=== PATIENT | male | born 1940 | race Caucasian/White ===

== ENCOUNTER 2018-10-04 07:26 | Inpatient (IN) | payer MEDICARE, OTHER | END 2018-10-06 12:00 | disposition home or self-care (01) | LOC: PAS IN 07:26 → ORTHO 4S 14:30 | PROC: 0SRC0J9 Replacement of Right Knee Joint with Synthetic Substitute, Cemented, Open Approach (ICD-10-PCS; principal; 2018-10-04 10:28) | DX: M17.11 Unilateral primary osteoarthritis, right knee (principal); D62 Acute posthemorrhagic anemia ==

== ENCOUNTER 2019-06-20 11:32 | Emergency (ER) | payer MEDICARE, OTHER ==
[~2019-06-20] VITALS: Ht 172.7 cm; Wt 84.1 kg
[~2019-06-20 11:32] MED LIST: AMIO200T61 PO; ASPI-1 PO; ATOR80TA PO; CYAN100019 PO; FELO5TAB4 PO; FOCUS FACTOR; GLUC-99 PO; GLUC100017; HYDR-3972 PO; LACT1CAP65 PO; SILD100T PO; VITA400T8 PO; ZET10T PO
[2019-06-20 12:00] LABS: BASOPHILS # (AUTO) 0.1 X10'3 (0-0.2); BASOPHILS % (AUTO) 1.1 % (0-1); EOSINOPHILS # (AUTO) 0.3 X10'3 (0-0.9); HEMATOCRIT 45.2 % (42.0-52.0); HEMOGLOBIN 14.7 g/dl (14.0-17.9); LYMPHOCYTES # (AUTO) 1.5 X10'3 (1.1-4.8); LYMPHOCYTES % (AUTO) 22.7 % (21-51); MEAN CORPUSCULAR HEMOGLOBIN 28.8 PG (27.0-31.0); MEAN CORPUSCULAR HGB CONC 32.6 g/dL (33.0-36.5); MEAN CORPUSCULAR VOLUME 88.2 FL (78-98); MEAN PLATELET VOLUME 9.8 FL (7.4-10.4); MONOCYTES # (AUTO) 0.7 X10'3 (0-0.9); MONOCYTES % (AUTO) 10.2 % (2-12); PLATELET COUNT 144 X10'3 (140-440); RED BLOOD COUNT 5.12 X10'6 (4.70-6.10); RED CELL DISTRIBUTION WIDTH 16.1 % (11.5-14.5); WHITE BLOOD COUNT 6.4 X10'3 (4.5-11.0)
[2019-06-20 12:14] LABS: PARTIAL THROMBOPLASTIN TIME 26 SECONDS (22-32)
[2019-06-20 12:17] LABS: ALANINE AMINOTRANSFERASE 41 U/L (12-78); ALBUMIN 3.7 G/DL (3.4-5.0); ALBUMIN/GLOBULIN RATIO 1.1 (1.1-1.5); ALKALINE PHOSPHATASE 130 IU/L (46-116); ANION GAP 8 (8-16); ASPARTATE AMINO TRANSFERASE 43 U/L (10-37); BLOOD UREA NITROGEN 24 MG/DL (7-18); BUN/CREATININE RATIO 15.3 (5.4-32.0); CALCIUM 8.8 MG/DL (8.5-10.1); CHLORIDE 108 MMOL/L (99-107); CREATININE 1.57 MG/DL (0.60-1.10); GLUCOSE 200 MG/DL (70-104); POTASSIUM 4.3 MMOL/L (3.5-5.1); SODIUM 145 MMOL/L (135-145); TOTAL CARBON DIOXIDE 28.9 MMOL/L (24-32); TOTAL PROTEIN 7.2 G/DL (6.4-8.2); eGFR 43 ML/MIN
[2019-06-20 12:35] LABS: D-DIMER 0.58 MG/L FEU (0-0.50)
[2019-06-20] MEDS ORDERED: normal saline 1000ML IV soln IVB ONE ×2 (12:35)
[2019-06-20] MEDS ORDERED: iohexol 350MG/ML 100ml bottle IV ONE (13:07)
[2019-06-20] MEDS ORDERED: furosemide 10 MG/1 ML 10ml inj IV ONE (14:45)
[2019-06-20 15:17] VITALS: BP 101/61
== END 2019-06-20 15:21 | disposition home or self-care (01) ==
LOC: ER 11:32
DX: I11.0 Hypertensive heart disease with heart failure (principal); I50.9 Heart failure, unspecified; I25.2 Old myocardial infarction; I25.10 Atherosclerotic heart disease of native coronary artery without angina pectoris; R22.41 Localized swelling, mass and lump, right lower limb; Z86.73 Personal history of transient ischemic attack (TIA), and cerebral infarction without residual deficits; Z90.49 Acquired absence of other specified parts of digestive tract; Z98.890 Other specified postprocedural states; Z79.82 Long term (current) use of aspirin; Z79.899 Other long term (current) drug therapy
CPT/HCPCS: 36415; 71045; 71275; 80053; 83880; 84484; 85025; 85379; 85610; 85730; 93005; 93971; 96374; 99284; J1940; J7030; J7040; Q9967

== ENCOUNTER 2019-09-04 12:43 | Outpatient (CLI) | payer OTHER ==
[~2019-09-04 12:43] MED LIST changes: -FELO5TAB4 PO; +FELO5TAB46 PO
== END 2019-09-04 23:59 | disposition home or self-care (01) ==
LOC: CARD DIAG 12:43
PROVIDERS: ATTEND Orthopaedic Surgery
DX: I08.8 Other rheumatic multiple valve diseases (principal); I25.10 Atherosclerotic heart disease of native coronary artery without angina pectoris
CPT/HCPCS: 93306

== ENCOUNTER 2022-07-10 09:46 | Outpatient (CLI) | payer OTHER ==
[2022-07-10 10:16] LABS: BASOPHILS # (AUTO) 0.1 X10'3 (0-0.2); BASOPHILS % (AUTO) 1.3 % (0-1); EOSINOPHILS # (AUTO) 0.2 X10'3 (0-0.9); HEMATOCRIT 42.4 % (42.0-52.0); HEMOGLOBIN 14.1 g/dl (14.0-17.9); LYMPHOCYTES # (AUTO) 1.2 X10'3 (1.1-4.8); LYMPHOCYTES % (AUTO) 19.2 % (21-51); MEAN CORPUSCULAR HEMOGLOBIN 33.4 PG (27.0-31.0); MEAN CORPUSCULAR HGB CONC 33.4 g/dL (33.0-36.5); MEAN CORPUSCULAR VOLUME 100.1 FL (78-98); MEAN PLATELET VOLUME 9.5 FL (7.4-10.4); MONOCYTES # (AUTO) 0.8 X10'3 (0-0.9); MONOCYTES % (AUTO) 13.5 % (2-12); NEUTROPHILS # (AUTO) 3.9 X10'3 (1.8-7.7); PLATELET COUNT 126 X10'3 (140-440); RED BLOOD COUNT 4.24 X10'6 (4.70-6.10); RED CELL DISTRIBUTION WIDTH 15.3 % (11.5-14.5); WHITE BLOOD COUNT 6.2 X10'3 (4.5-11.0)
[2022-07-10 10:29] LABS: APTT 27 SECONDS (22-32)
[2022-07-10 10:33] LABS: ALANINE AMINOTRANSFERASE 45 U/L (12-78); ALBUMIN 3.4 G/DL (3.4-5.0); ALBUMIN/GLOBULIN RATIO 1.1 (1.1-1.5); ALKALINE PHOSPHATASE 93 IU/L (46-116); ANION GAP 6 (8-16); ASPARTATE AMINO TRANSFERASE 32 U/L (10-37); BILIRUBIN,TOTAL 0.5 MG/DL (0.1-1.0); BLOOD UREA NITROGEN 23 MG/DL (7-18); BUN/CREATININE RATIO 19.3 (5.4-32.0); CALCIUM 9.3 MG/DL (8.5-10.1); CHLORIDE 110 MMOL/L (99-107); CREATININE 1.19 MG/DL (0.60-1.10); GLUCOSE 123 MG/DL (70-104); POTASSIUM 4.5 MMOL/L (3.5-5.1); SODIUM 145 MMOL/L (135-145); TOTAL CARBON DIOXIDE 29.5 MMOL/L (24-32); TOTAL PROTEIN 6.5 G/DL (6.4-8.2); eGFR 59 ML/MIN
[2022-07-10] MEDS ORDERED: IODIXANOL 320 MG/ML INFUS..BTL 100ML IV ONE (11:21)
== END 2022-07-10 23:59 | disposition home or self-care (01) ==
LOC: RAD 09:46
PROVIDERS: ATTEND Internal Medicine Cardiovascular Disease
DX: Z01.818 Encounter for other preprocedural examination (principal); I65.23 Occlusion and stenosis of bilateral carotid arteries; K44.9 Diaphragmatic hernia without obstruction or gangrene; K40.90 Unilateral inguinal hernia, without obstruction or gangrene, not specified as recurrent; I51.7 Cardiomegaly; I70.0 Atherosclerosis of aorta; I72.9 Aneurysm of unspecified site; M47.814 Spondylosis without myelopathy or radiculopathy, thoracic region; I35.0 Nonrheumatic aortic (valve) stenosis; Z87.891 Personal history of nicotine dependence; Z79.899 Other long term (current) drug therapy; Z90.49 Acquired absence of other specified parts of digestive tract
CPT/HCPCS: 36415; 71046; 71275; 74174; 80053; 85025; 85610; 85730; 93880; 94010; 94727; 94729; J3490; Q9967

== ENCOUNTER 2023-08-07 16:55 | Inpatient (IN) | payer OTHER, MEDICARE ==
[~2023-08-07] VITALS: Ht 172.7 cm; Wt 84.1 kg
[~2023-08-07 16:55] MED LIST changes: +AMI200T PO; -AMIO200T61 PO; +APIX5TAB3 PO; -ASPI-1 PO; +ASPI81TA52 PO; +AZIT250T PO; +CARV3.122 PO; +CEPH-585 PO; +CHOL20003 PO; +CLOP75TA34 PO; +EZET10TA7 PO; -FELO5TAB46 PO; -FOCUS FACTOR; +FOCUS FACTOR PO; +FURO-149 PO; +GABA-530 PO; -GLUC-99 PO; -GLUC100017; +GLUC100017 PO; -HYDR-3972 PO; +POTA-207 PO; +SACU1TAB PO; -SILD100T PO; +VITA100T5 PO; -VITA400T8 PO; -ZET10T PO
[2023-08-07 17:57] LABS: BASOPHILS % (AUTO) 0.4 % (0-1); EOSINOPHILS % (AUTO) 0.4 % (0-6); HEMATOCRIT 41.2 % (42.0-52.0); HEMOGLOBIN 13.6 g/dl (14.0-17.9); LYMPHOCYTES # (AUTO) 0.4 X10'3 (1.1-4.8); LYMPHOCYTES % (AUTO) 4.8 % (21-51); MEAN CORPUSCULAR HEMOGLOBIN 31.8 PG (27.0-31.0); MEAN CORPUSCULAR HGB CONC 32.9 g/dL (33.0-36.5); MEAN CORPUSCULAR VOLUME 96.5 FL (78-98); MEAN PLATELET VOLUME 9.9 FL (7.4-10.4); MONOCYTES # (AUTO) 0.8 X10'3 (0-0.9); MONOCYTES % (AUTO) 10.6 % (2-12); NEUTROPHILS # (AUTO) 6.5 X10'3 (1.8-7.7); NEUTROPHILS % (AUTO) 83.8 % (42-75); PLATELET COUNT 106 X10'3 (140-440); RED BLOOD COUNT 4.27 X10'6 (4.70-6.10); RED CELL DISTRIBUTION WIDTH 14.2 % (11.5-14.5); WHITE BLOOD COUNT 7.7 X10'3 (4.5-11.0)
[2023-08-07 18:10] LABS: ALANINE AMINOTRANSFERASE 209 U/L (12-78); ALBUMIN 3.6 G/DL (3.4-5.0); ALBUMIN/GLOBULIN RATIO 1.2 (1.1-1.5); ALKALINE PHOSPHATASE 271 IU/L (46-116); ANION GAP 9 (8-16); ASPARTATE AMINO TRANSFERASE 199 U/L (10-37); BILIRUBIN,TOTAL 1.2 MG/DL (0.1-1.0); BLOOD UREA NITROGEN 17 MG/DL (7-18); BUN/CREATININE RATIO 13.5 (10.0-20.0); CALCIUM 9.1 MG/DL (8.5-10.1); CHLORIDE 104 MMOL/L (99-107); CREATININE 1.26 MG/DL (0.60-1.10); GLUCOSE 130 MG/DL (70-104); POTASSIUM 3.4 MMOL/L (3.5-5.1); SODIUM 139 MMOL/L (135-145); TOTAL CARBON DIOXIDE 25.6 MMOL/L (24-32); TOTAL PROTEIN 6.6 G/DL (6.4-8.2); eCRCL 44 ML/MIN; eGFR 55 ML/MIN
[2023-08-07 18:19] LABS: PRO BRAIN NATRIURETIC PEPTIDE 4330 PG/ML (0-450)
[2023-08-08] MEDS ORDERED: ondansetron/PF 4mg/2ml inj IV PRN (01:05)
[2023-08-08] MEDS ORDERED: ondansetron 4mg rapidly disintigrating tab PO PRN (01:05)
[2023-08-08] MEDS ORDERED: morphine 2 MG/ML inj. syringe IV PRN (01:05)
[2023-08-08] MEDS ORDERED: diphenhydrAMINE 50 mg/ml inj IV PRN (01:05)
[2023-08-08] MEDS ORDERED: HYDROcodone/acetaminophen 5mg/325mg tablet PO PRN (01:05)
[2023-08-08] MEDS ORDERED: acetaminophen 325mg tablet PO PRN ×2 (01:05)
[2023-08-08] MEDS ORDERED: normal saline 1000ml 1,000 ML IV SCH (01:05)
[2023-08-08] MEDS ORDERED: acetaminophen 650mg rectal suppository RC PRN (01:05)
[2023-08-08] MEDS ORDERED: mag hydrox/Alum hydrox/simeth 30ml oral suspension PO PRN (01:05)
[2023-08-08] MEDS ORDERED: bisacodyl 10mg suppository rectal RC PRN (01:05)
[2023-08-08] MEDS ORDERED: diphenhydrAMINE 25mg capsule PO PRN (01:05)
[2023-08-08] MEDS ORDERED: magnesium hydroxide 30ml (MOM) UD suspension PO PRN (01:05)
[2023-08-08 01:42] LABS: PHOSPHORUS 3.8 MG/DL (2.3-4.5)
[2023-08-08 01:43] LABS: APTT 30 SECONDS (22-32); D-DIMER 0.55 MG/L FEU (0-0.50); INR 1.1 INR; PROTHROMBIN TIME 11.9 SECONDS (9.0-12.0)
[2023-08-08 01:52] LABS: HEMOGLOBIN A1C 5.8 % (4.5-6.2)
[2023-08-08] MEDS ORDERED: aspirin 81mg, enteric-coated 1 TAB TABLET.DR PO ONE (05:00)
[2023-08-08] MEDS: aspirin 81mg, enteric-coated 1 TAB TABLET.DR PO SCH (07:35)
[2023-08-08] MEDS: docusate sod 100mg capsule PO SCH (07:35)
[2023-08-08] MEDS: pantoprazole 40mg Tablet.DR PO SCH (07:35)
[2023-08-08] MEDS ORDERED: potassium Cl 20 mEq SR tablet PO PRN (09:50)
[2023-08-08] MEDS: furosemide 40mg tablet PO SCH (10:40)
[2023-08-08] MEDS: gabapentin 100mg capsule PO SCH (13:13)
[2023-08-08 20:00] VITALS: BP 114/70; PULSE 74; RESP 16; TEMP 98.1; O2SAT 98
[2023-08-08] MEDS: sacubitril/valsartan 24mg-26mg tablet PO SCH (20:00)
[2023-08-08] MEDS ORDERED: ezetimibe 10mg tablet PO SCH (21:00)
[2023-08-08] MEDS ORDERED: atorvastatin 20mg tablet PO SCH (21:00)
[2023-08-08] MEDS ORDERED: cyanocobalamin 500mcg tablet PO SCH (21:00)
[2023-08-08] MEDS ORDERED: temazepam 15mg capsule PO PRN (21:00)
[2023-08-08 22:00] VITALS: BP 117/68; PULSE 72; RESP 18; TEMP 98; O2SAT 97
[2023-08-09 02:00] VITALS: BP 120/68; PULSE 75; RESP 20; TEMP 97.6; O2SAT 98
[2023-08-09] MEDS: gabapentin 100mg capsule PO SCH ×2 (02:15→09:33)
[2023-08-09] MEDS: docusate sod 100mg capsule PO SCH ×2 (02:16→09:32)
[2023-08-09] MEDS: carVEDilol 3.125mg tablet PO SCH ×2 (02:16→09:33)
[2023-08-09] MEDS: apixaban 2.5mg tablet PO SCH ×2 (02:17→09:33)
[2023-08-09 05:56] LABS: BASOPHILS % (AUTO) 0.6 % (0-1); EOSINOPHILS # (AUTO) 0.2 X10'3 (0-0.9); EOSINOPHILS % (AUTO) 3.1 % (0-6); HEMATOCRIT 36.9 % (42.0-52.0); HEMOGLOBIN 12.4 g/dl (14.0-17.9); LYMPHOCYTES # (AUTO) 0.8 X10'3 (1.1-4.8); LYMPHOCYTES % (AUTO) 12.1 % (21-51); MEAN CORPUSCULAR HEMOGLOBIN 32.7 PG (27.0-31.0); MEAN CORPUSCULAR HGB CONC 33.7 g/dL (33.0-36.5); MEAN CORPUSCULAR VOLUME 96.9 FL (78-98); MEAN PLATELET VOLUME 9.9 FL (7.4-10.4); MONOCYTES # (AUTO) 1.1 X10'3 (0-0.9); MONOCYTES % (AUTO) 16.9 % (2-12); NEUTROPHILS # (AUTO) 4.2 X10'3 (1.8-7.7); NEUTROPHILS % (AUTO) 67.3 % (42-75); PLATELET COUNT 84 X10'3 (140-440); RED BLOOD COUNT 3.81 X10'6 (4.70-6.10); RED CELL DISTRIBUTION WIDTH 14.6 % (11.5-14.5); WHITE BLOOD COUNT 6.3 X10'3 (4.5-11.0)
[2023-08-09 06:00] VITALS: BP 111/61; PULSE 77; RESP 16; TEMP 98.7; O2SAT 95
[2023-08-09 06:16] LABS: ALANINE AMINOTRANSFERASE 98 U/L (12-78); ALBUMIN 2.6 G/DL (3.4-5.0); ALBUMIN/GLOBULIN RATIO 0.8 (1.1-1.5); ALKALINE PHOSPHATASE 180 IU/L (46-116); ANION GAP 6 (8-16); ASPARTATE AMINO TRANSFERASE 61 U/L (10-37); BILIRUBIN,TOTAL 1.5 MG/DL (0.1-1.0); BLOOD UREA NITROGEN 15 MG/DL (7-18); BUN/CREATININE RATIO 12.9 (10.0-20.0); CALCIUM 8.8 MG/DL (8.5-10.1); CHLORIDE 105 MMOL/L (99-107); CHOL/HDL RATIO 2.4 (0.00-4.99); CHOLESTEROL 98 MG/DL (0-200); CREATININE 1.16 MG/DL (0.60-1.10); GLUCOSE 106 MG/DL (70-104); HDL CHOLESTEROL 41 MG/DL (35-60); LDL CHOLESTEROL 36 MG/DL (50-100); POTASSIUM 3.5 MMOL/L (3.5-5.1); SODIUM 141 MMOL/L (135-145); TOTAL CARBON DIOXIDE 30.5 MMOL/L (24-32); TOTAL PROTEIN 5.7 G/DL (6.4-8.2); TRIGLYCERIDES 109 MG/DL (20-135); eCRCL 48 ML/MIN; eGFR 60 ML/MIN
[2023-08-09 07:07] LABS: TOTAL CELLS COUNTED 100
[2023-08-09 07:08] LABS: PLATELET ESTIMATE DECREASED
[2023-08-09] MEDS ORDERED: amiodarone 200mg tablet PO SCH (08:00)
[2023-08-09] MEDS ORDERED: vitamin E 400 unit capsule PO SCH (08:00)
[2023-08-09] MEDS ORDERED: cholecalciferol (vitamin D3) 1,000 unit (25mcg) tablet PO SCH (08:00)
[2023-08-09] MEDS ORDERED: lactobacillus rhamnosus 10,000 MMU CELLS/CAPSULE PO SCH (08:00)
[2023-08-09] MEDS ORDERED: FOCUS FACTOR PO SCH (08:00)
[2023-08-09] MEDS ORDERED: GLUCOSAMINE SULFATE 3000 MG PO SCH (08:00)
[2023-08-09] MEDS: pantoprazole 40mg Tablet.DR PO SCH (09:32)
[2023-08-09] MEDS: sacubitril/valsartan 24mg-26mg tablet PO SCH (09:33)
[2023-08-09] MEDS: furosemide 40mg tablet PO SCH (09:33)
[2023-08-09] MEDS: aspirin 81mg, enteric-coated 1 TAB TABLET.DR PO SCH (09:33)
[2023-08-09 11:00] VITALS: BP 92/55; PULSE 74; RESP 18; TEMP 97.4; O2SAT 93
[2023-08-09] MEDS ORDERED: PANT40TA54 PO (12:16)
[2023-08-09] MEDS ORDERED: APIX5TAB3 PO (14:23)
== END 2023-08-09 16:11 | disposition home or self-care (01) | DRG 682 ==
LOC: ER 16:56 → ED HOLD 08-08 01:17 → PCU 3S 08-08 19:20
PROVIDERS: ADMIT Family Medicine; ATTEND Internal Medicine
PROC: 4B02XSZ Measurement of Cardiac Pacemaker, External Approach (ICD-10-PCS; principal; 2023-08-08)
DX: N17.9 Acute kidney failure, unspecified (principal); I21.A1 Myocardial infarction type 2; I50.23 Acute on chronic systolic (congestive) heart failure; I13.0 Hypertensive heart and chronic kidney disease with heart failure and stage 1 through stage 4 chronic kidney disease, or unspecified chronic kidney disease; E87.6 Hypokalemia; I25.10 Atherosclerotic heart disease of native coronary artery without angina pectoris; I27.20 Pulmonary hypertension, unspecified; G47.33 Obstructive sleep apnea (adult) (pediatric); I48.91 Unspecified atrial fibrillation; I35.0 Nonrheumatic aortic (valve) stenosis; D64.9 Anemia, unspecified; N18.9 Chronic kidney disease, unspecified; E78.00 Pure hypercholesterolemia, unspecified; Z79.01 Long term (current) use of anticoagulants; Z79.82 Long term (current) use of aspirin; Z79.899 Other long term (current) drug therapy; Z86.73 Personal history of transient ischemic attack (TIA), and cerebral infarction without residual deficits; Z95.0 Presence of cardiac pacemaker; Z87.891 Personal history of nicotine dependence; Z95.2 Presence of prosthetic heart valve; Z90.49 Acquired absence of other specified parts of digestive tract; I25.2 Old myocardial infarction
CPT/HCPCS: 36415; 70450; 71045; 80053; 80061; 83036; 83735; 83880; 84100; 84484; 85007; 85025; 85379; 85610; 85730; 87081; 93306; 97161; 97530; 99285; G0378; J7030